=== PATIENT | female | born 1960 | race African-American/Black ===

== ENCOUNTER → 2016-09-29 | Outpatient (CLI) | payer MEDICARE, OTHER ==
[~2016-09-29] MED LIST: ACETAMINOPHEN GT; ACETAMINOPHEN PEG; ACETAMINOPHEN PR; ACETAMINOPHEN325 MG PEG; ACETAMINOPHEN650 M3 GT; ACETIC ACID 01000 ML AU; ACETIC ACID AU; ACETIC ACID15 M1; ACID CONTROL20 MG DOB; ACID CONTROLLER20 MG GT; ACID REDUCER20 MG GT; ALL DAY ALLERGY10 MG GT; ALLERGY10 MG PEG; ANTIVERT PO; ARTIFICIAL TEAR15 M3 OP; ARTIFICIAL TEAR15 M3 OU; ASPERCREME76.5 GM TOP; ASPIRIN EC81 M1 GT; AURALGAN EAR DR14 ML AU; BACLOFEN10 MG PO; BACTROBAN15 GM; BISA-LAX10 MG/SUP1 RC; BISACODYL10 MG/SUPP PR; CALCIUM CITRATE1 T12 PO; CALMOSEPTINE O3.5 GM TOP; CARAFATE1 G PEG; CARAFATE1 G PO; CENTRAM-CA9 MG/15 ML GT; CENTRUM PEG; CENTRUM240 ML PEG; CEROVITE SILVER1 TA1 DOB; CERTA VITE9 MG/15 ML PO; CERTAVITE NG; CHEWABLE ASPIRI81 MG PO; CITRACAL200 MG PO; CLARITIN10 M2 GT; CLARITIN10 M2 PO; CLARITIN10 MG PEG; CLARITIN10 MG PO; CLEOCIN HCL300 M1 DOB; CLONIDINE TD; COLACE PO; COMPLETE M9 MG/15 ML PO; CORTISPORIN-TC10 M1 AU; DEPO-PROVER150 MG/ML INJ; DIASTAT ACUDIAL1 KIT PR; DIASTAT10 MG PR; DIASTAT2.5 MG PR; DOC-Q-LACE50 MG/5 ML GT; DULCOLAX10 MG/SUPP RC; E.E.S. 200200 MG/5 M PEG; ENALAPRIL MALE2.5 MG FT; ENALAPRIL MALE2.5 MG GT; ERYTHROMYC200 MG/51 PEG; ERYTHROMYCIN60 ML DOB; FAMOTIDINE PO; FAMOTIDINE20 MG PEG; GAS RELIEF40 MG/0.1 GT; GENTAMICIN SULFA5 ML OU; GLUCAGEN1 MG; GLUCAGON W/DILUE1 MG IM; HYDROCODONE-APA1 T55; HYDROCORTISONE5 MG PO; KEPPRA XR750 MG; KEPPRA100 MG/ML PEG; KEPPRA1000 MG GT; KEPPRA1000 MG PEG; KEPPRA250 MG GT; KEPPRA250 MG PEG; KEPPRA500 MG DOB; KEPPRA500 MG PEG; KEPPRA750 M1 PO; LACTULOSE10 G/15 ML PO; LEVAQUIN NG; LEVOFLOXACIN500 MG PO; LISINOPRIL PO; LISINOPRIL10 MG GT; LOVENOX SUBQ; LYRICA GT; LYRICA PEG; LYRICA100 MG DOB; LYRICA100 MG GT; LYRICA100 MG PEG; LYRICA100 MG PO; MAALOX SUSPENS355 ML DOB; MAALOX SUSPENS355 ML GT; MAG-OX 400400 M1 PEG; MAG-OX 400400 MG DOB; MAG-OXIDE400 MG PEG; MAGNESIUM GLUC200 MG DOB; METOPROLOL SUCC25 MG PO; MIACALCIN4 ML; MIRALAX17 G2 GT; MIRALAX17 GM DOB; MIRALAX255 GM PEG; MULTI VITAMIN1 EACH PO; MYLICON40 MG/0.1; MYLICON40 MG/0.1 GT; MYLICON40 MG/0.6; MYLICON40 MG/0.6 PEG; NEO-POLYMYXIN-H10 M2; NEO-POLYMYXYIN-10 ML OT; NEO/POLYMYXIN/H10 M1 AU; NEURONTIN PO; NEURONTIN300 MG DOB; PAXIL; PEPCID AC20 M2 PO; POLYETHYLENE G500 G1; PREVACID PO; PRILOSEC PO; PROBIOTIC1 EACH DOB; PROBIOTIC1 EACH PEG; RANITIDINE H15 MG/ML GT; REGLAN PO; RISAMINE OINTM113 GM TOP; SORINE80 MG PO; SPORTSCREME; TROLAMINE1 ML MC; TYGACIL IV; TYL325 GT; TYLENOL325 M1 DOB; TYLENOL325 M1 PEG; VALSARTAN160 MG PO; VASOTEC GT; VASOTEC PEG; VASOTEC PO; VASOTEC2.5 MG; VASOTEC2.5 MG DOB; VASOTEC2.5 MG GT; VASOTEC2.5 MG PEG; VICON-C PO; VIT D GT; VITAMIN D1000 UNI1 PEG; VITAMIN D1000 UNI2 GT; VITAMIN D1000 UNIT GT; VITAMIN D1000 UNIT PEG; VITAMIN D3400 UNI2 GT; VOSOL HC EAR DR10 M1 AU; XARELTO20 MG PO; ZANTAC15 MG/M1 PEG; ZYRTEC10 M2 PEG; ZYRTEC10 M2 PO; [UNRECOGNIZED DRUG - OTHER]; [UNRECOGNIZED DRUG - OTHER]; [UNRECOGNIZED DRUG - OTHER] GT; [UNRECOGNIZED DRUG - OTHER] PO; [UNRECOGNIZED DRUG - OTHER] PO
== END | disposition home or self-care (01) ==
LOC: CSSDAY 10:00
DX: M81.0 Age-related osteoporosis without current pathological fracture (principal); Z79.899 Other long term (current) drug therapy
CPT/HCPCS: 96372; J0897

== ENCOUNTER → 2016-12-13 | Outpatient (CLI) | payer MEDICARE, OTHER ==
--- NOTE | ~2016-12-13 | US98 ---
[facility] A Service of [facility] RADIOLOGY TEXT RESULTS PATIENT: KIERA ALVAREZ LOCATION: [facility] : 60 UNIT #: [id number] AGE: [address]: DISHA JUNG SEX: F ORDER DR: [id number] [facility] [address] [place]. [place], [place] [address] [id number] O MR#: [id number] Acc #: [id number] NAME: KIERA ALVAREZ. : 1960 SEX: F STUDY DATE/TIME: 12/13/2016 11:25 UNIT: CG ROOM: STUDY DESCRIPTION: US Pelvic Non-OB Complete Attending Physician: Disha Jung Referring Physician: Disha Jung Primary Care Physician: Francisco Garcia Sr., M.D. MEDICAL IMAGING REPORT This report is preliminary unless electronic signature is present EXAM Pelvic ultrasound, transabdominal technique, 12/13/2016 INDICATIONS Small amount of postmenopausal vaginal bleeding, 12/07/2016. TECHNIQUE Sonographic imaging of the pelvis was performed transabdominally only. Transvaginal imaging cannot be performed secondary to the patient's contracted state and functional status. COMPARISON 01/09/2015. FINDINGS TRANSABDOMINAL: The uterus measures about 6.2 x 2.6 x 4.2 cm. Endometrial stripe measures about 4 mm, in the normal range. In the lower uterine segment, there is re-demonstration of a nonspecific area of mixed echogenicity, likely representing a fibroid. Dimensions are about 2.1 x 2.1 cm. Findings are similar to the prior study when it measured up to 2.3 cm. Neither ovary was identified. No free fluid or adnexal mass. IMPRESSION 1. Probable uterine fibroid, similar to the prior 2014 study. No endometrial thickening. 2. Neither ovary was identified. Dictated by... Nick Méndez M.D. THIS IS AN ELECTRONICALLY VERIFIED REPORT [facility] A Service of [facility] RADIOLOGY TEXT RESULTS PATIENT: KIERA ALVAREZ LOCATION: [facility] #: [id number] : 60 UNIT #: [id number] AGE: [address]: DISHA JUNG SEX: F ORDER DR: Nick Méndez M.D. at 12/16/2016 5:17 PM JOSH/kalie TD: 12/13/2016 21:02 JOB #: [id number] MEDICAL IMAGING REPORT Page 1 of 1 COPY
== END | disposition home or self-care (01) ==
LOC: CGUS 10:53 → CWCC 11:00
DX: N93.9 Abnormal uterine and vaginal bleeding, unspecified (principal)
CPT/HCPCS: 76856; 93976